=== PATIENT | female | born 1985 ===

== ENCOUNTER 2020-01-21 16:30 | Observation (INO) | payer OTHER ==
--- NOTE | 2020-01-21 18:29 | CR ---
Chest: Portable view of the chest was obtained. Comparison: No prior chest imaging is available. Heart size and mediastinum are normal. Lungs show no acute parenchymal change. Bony structures are grossly intact. Impression: 1. Nothing acute is appreciated on portable chest x-ray. Diagnostic code #1 This report was dictated in MDT
[2020-01-21] MEDS ORDERED: NIFEdipine 10 MG Cap PO ONE (18:50)
[2020-01-21] MEDS ORDERED: Albuterol/Ipratropium 3.0-0.5 MG/3 ML Neb Soln NEB ONE (18:52)
[2020-01-21] MEDS: Betamethasone Acetate/Betamethasone Sod Phosphate 30 MG/5 ML MDV IM SCH (19:48)
[2020-01-21] MEDS ORDERED: hydrALAZINE 20 MG/ML SDV IVPUSH PRN (20:29)
[2020-01-21] MEDS: Labetalol 100 MG Tab PO SCH (20:46)
--- NOTE | 2020-01-21 22:14 | PCM.PN ---
- General Info Date of Service: 01/21/20 Subjective Update: Patient has significant improvement in SOB after duoneb treatment, chest pressure also improving. Had intermittent severe range BPs, has improved since given labetalol, now 140-150s/90s. Having soreness in her hands and feet due to swelling. Denies any contractions or abdominal pain, headache, changes in vision. +FM - Review of Systems General: Reports: No Symptoms HEENT: Reports: No Symptoms Pulmonary: Reports: Shortness of Breath Cardiovascular: Reports: Dyspnea on Exertion Gastrointestinal: Reports: No Symptoms Genitourinary: Reports: No Symptoms Musculoskeletal: Reports: No Symptoms Skin: Reports: Other (swelling) Neurological: Reports: No Symptoms Psychiatric: Reports: No Symptoms - Patient Data Vitals - Most Recent: Last Vital Signs Temp Pulse 128 H 01/21/20 20:46 Resp BP 144/84 H 01/21/20 20:46 Pulse Ox Weight - Most Recent: 274 lb Med Orders - Current: Current Medications Albuterol/Ipratropium (Duoneb 3.0-0.5 Mg/3 Ml) 3 ml NEB Q4HRRT PRN PRN Reason: Shortness of Breath Betamethasone Acet/Betameth SodPhos (Celestone Soluspan 6 Mg/Ml) 12 mg IM Q24H [facility] Stop: 01/22/20 19:01 Last Admin: 01/21/20 19:48 Dose: 12 mg Documented by: Hydralazine HCl (Apresoline) 20 mg IVPUSH Q4H PRN PRN Reason: Hypertension Labetalol HCl (Normodyne) 200 mg PO BID [facility] Last Admin: 01/21/20 20:46 Dose: 200 mg Documented by: Discontinued Medications Albuterol/Ipratropium (Duoneb 3.0-0.5 Mg/3 Ml) 3 ml NEB ONETIME ONE Stop: 01/21/20 18:53 Last Admin: 01/21/20 19:08 Dose: 3 ml Documented by: Nifedipine (Procardia) 10 mg PO ONETIME ONE Stop: 01/21/20 18:51 Last Admin: 01/21/20 19:47 Dose: 10 mg Documented by: - Exam General: Alert, Oriented, Cooperative, No Acute Distress HEENT: Pupils Equal, Pupils Reactive, EOMI Neck: Supple, Trachea Midline, No JVD Lungs: Clear to Auscultation, Wheezing (mild bilaterally ), Other (slightly increased effort) Cardiovascular: Regular Rate, Regular Rhythm, No Murmurs GI/Abdominal Exam: Soft, Non-Tender Back Exam: Normal Inspection, Full Range of Motion Extremities: Normal Inspection, Normal Range of Motion, Non-Tender, Other (2+ nonpitting edema, reflex 2+ b/l LE) Skin: Warm, Dry, Intact Neurological: No New Focal Deficit Psy/Mental Status: Alert, Normal Affect, Normal Mood Sepsis Event Note - Focused Exam Vital Signs: Vital Signs Pulse BP 01/21/20 20:46 128 H 144/84 H 01/21/20 19:47 170/92 H - Problem List & Annotations (1) Asthma affecting in third trimester SNOMED Code(s): 314549827, 258267254 Code(s): O99.513 - DISEASES OF THE RESP SYS COMP , THIRD TRIMESTER; J45.909 - UNSPECIFIED ASTHMA, UNCOMPLICATED Status: Acute Current Visit: Yes (2) Chronic hypertension complicating or reason for care during SNOMED Code(s): 28007100 Code(s): O10.919 - UNSP PRE-EXISTING HTN COMP , UNSP TRIMESTER Status: Acute Current Visit: Yes - Problem List Review Problem List Initiated/Reviewed/Updated: Yes - My Orders Last 24 Hours: My Active Orders 01/21/20 18:53 RT Aerosol Therapy [RC] ASDIRECTED 01/21/20 19:00 Betamet Acet/Betamet Na Phos [Celestone Soluspan 6 MG/ML] 12 mg IM Q24H 01/21/20 21:18 RT Aerosol Therapy [RC] ASDIRECTED 01/21/20 23:00 Albuterol/Ipratropium [DuoNeb 3.0-0.5 MG/3 ML] 3 ml NEB Q4HRRT PRN 01/22/20 Dinner Regular Diet [DIET] - Assessment Assessment:: 34yo @33w2d admitted for observation due to asthma exacerbation and elevated BP with chronic HTN. - Plan Plan:: 1. Asthma exacerbation - SOB improving with duonebs q4hr - was on fluticasone/salmeterol at home, consider starting PO steroids - no signs of infection, had negative COVID19 test yesterday - neg chest xray - Cardiology consulted, cardiac echo wnl, does not have signs of cardiomyopathy. Start labetalol 200mg BID, stop metoprolol. 2. Chronic HTN with elevated BP - may be exacerbated due to asthma - preeclampsia labs wnl, prot/cr ratio of 0.2 - intermittent severe range BPs, has been 140-150s/90s with labetalol - SCDs for swelling - will monitor BP and symptoms closely, repeat labs in AM 3. status - Cat 1 tracing (140 baseline, mod anali, +accls, -decels). No ctx - will do NST q8hrs - given beta #1 @1948, 2nd dose in 24hrs Continue inpatient OBS
[2020-01-21] MEDS: Albuterol/Ipratropium 3.0-0.5 MG/3 ML Neb Soln NEB PRN (23:23)
[2020-01-22] MEDS: Albuterol/Ipratropium 3.0-0.5 MG/3 ML Neb Soln NEB PRN ×3 (03:55→15:01)
[2020-01-22 06:28] LABS: BLOOD UREA NITROGEN,BUN 5 mg/dL (7.0-18.0); CARBON DIOXIDE,CO2 23.6 mmol/L (21.0-32.0); CHLORIDE,CL 102 mmol/L (98-107); GLUCOSE RANDOM 117 mg/dL (74-106); POTASSIUM,K 3.7 mmol/L (3.5-5.1); SODIUM,NA 136 mmol/L (136-145)
[2020-01-22] MEDS: Acetaminophen 500 MG Tab PO PRN ×2 (06:34→15:40)
[2020-01-22] MEDS: Labetalol 100 MG Tab PO SCH (09:01)
--- NOTE | 2020-01-22 09:04 | PCM.PN ---
- General Info Date of Service: 01/22/20 Subjective Update: Breathing much easier this morning, was able to rest last night. Less pain in her legs with SCDs. BP stable, normal to mild range with labetalol. - Review of Systems General: Reports: No Symptoms HEENT: Reports: No Symptoms Pulmonary: Reports: No Symptoms Cardiovascular: Reports: No Symptoms Gastrointestinal: Reports: No Symptoms Genitourinary: Reports: No Symptoms Musculoskeletal: Reports: No Symptoms Skin: Reports: No Symptoms Neurological: Reports: No Symptoms Psychiatric: Reports: No Symptoms - Patient Data Vitals - Most Recent: Last Vital Signs Temp Pulse 128 H 01/21/20 20:46 Resp BP 144/84 H 01/21/20 20:46 Pulse Ox Weight - Most Recent: 274 lb Lab Results Last 24 Hours: Laboratory Results - last 24 hr 01/22/20 01/22/20 Range/Units 05:54 05:54 WBC 13.79 H (4.0-11.0) K/uL RBC 3.81 L (4.30-5.90) M/uL Hgb 9.5 L (12.0-16.0) g/dL Hct 30.5 L (36.0-46.0) % MCV 80.1 (80.0-98.0) fL MCH 24.9 L (27.0-32.0) pg MCHC 31.1 (31.0-37.0) g/dL RDW Std Deviation 42.1 (28.0-62.0) fl RDW Coeff of Chad 15 (11.0-15.0) % Plt Count 289 (150-400) K/uL MPV 9.70 (7.40-12.00) fL Neut % (Auto) 82.5 H (48.0-80.0) % Lymph % (Auto) 14.1 L (16.0-40.0) % [place] % (Auto) 3.3 (0.0-15.0) % Eos % (Auto) 0.0 (0.0-7.0) % Baso % (Auto) 0.1 (0.0-1.5) % Neut # (Auto) 11.4 H (1.4-5.7) K/uL Lymph # (Auto) 2.0 (0.6-2.4) K/uL [place] # (Auto) 0.5 (0.0-0.8) K/uL Eos # (Auto) 0.0 (0.0-0.7) K/uL Baso # (Auto) 0.0 (0.0-0.1) K/uL Sodium 136 (136-145) mmol/L Potassium 3.7 (3.5-5.1) mmol/L Chloride 102 (98-107) mmol/L Carbon Dioxide 23.6 (21.0-32.0) mmol/L BUN 5 L (7.0-18.0) mg/dL Creatinine 0.8 (0.6-1.0) mg/dL Est Cr Clr Drug Dosing 90.10 mL/min Estimated GFR (MDRD) > 60.0 ml/min Glucose 117 H (74-106) mg/dL Uric Acid 3.8 (2.6-7.2) mg/dL Calcium 8.7 (8.5-10.1) mg/dL Total Bilirubin 0.3 (0.2-1.0) mg/dL AST 16 (15-37) IU/L ALT 16 (14-63) IU/L Alkaline Phosphatase 103 (46-116) U/L Total Protein 7.1 (6.4-8.2) g/dL Albumin 2.6 L (3.4-5.0) g/dL Globulin 4.5 H (2.6-4.0) g/dL Albumin/Globulin Ratio 0.6 L (0.9-1.6) Med Orders - Current: Current Medications Acetaminophen (Tylenol Extra Strength) 1,000 mg PO Q6H PRN PRN Reason: Headache Last Admin: 01/22/20 06:34 Dose: 1,000 mg Documented by: Albuterol/Ipratropium (Duoneb 3.0-0.5 Mg/3 Ml) 3 ml NEB Q4HRRT PRN PRN Reason: Shortness of Breath Last Admin: 01/22/20 06:38 Dose: 3 ml Documented by: Betamethasone Acet/Betameth SodPhos (Celestone Soluspan 6 Mg/Ml) 12 mg IM Q24H [facility] Stop: 01/22/20 19:01 Last Admin: 01/21/20 19:48 Dose: 12 mg Documented by: Hydralazine HCl (Apresoline) 20 mg IVPUSH Q4H PRN PRN Reason: Hypertension Labetalol HCl (Normodyne) 200 mg PO BID [facility] Last Admin: 01/21/20 20:46 Dose: 200 mg Documented by: Discontinued Medications Albuterol/Ipratropium (Duoneb 3.0-0.5 Mg/3 Ml) 3 ml NEB ONETIME ONE Stop: 01/21/20 18:53 Last Admin: 01/21/20 19:08 Dose: 3 ml Documented by: Nifedipine (Procardia) 10 mg PO ONETIME ONE Stop: 01/21/20 18:51 Last Admin: 01/21/20 19:47 Dose: 10 mg Documented by: - Exam General: Alert, Oriented, Cooperative, No Acute Distress HEENT: Pupils Equal, Pupils Reactive Neck: Supple, Trachea Midline Lungs: Normal Respiratory Effort GI/Abdominal Exam: Soft, Non-Tender Back Exam: Normal Inspection, Full Range of Motion Extremities: Normal Inspection, Normal Range of Motion, Non-Tender, Pedal Edema (2+ nonpitting) Skin: Warm, Dry, Intact Neurological: No New Focal Deficit Psy/Mental Status: Alert, Normal Affect, Normal Mood Sepsis Event Note - Evaluation Sepsis Screening Result: No Definite Risk - Problem List & Annotations (1) Asthma affecting in third trimester SNOMED Code(s): 330562082, 506829694 Code(s): O99.513 - DISEASES OF THE RESP SYS COMP , THIRD TRIMESTER; J45.909 - UNSPECIFIED ASTHMA, UNCOMPLICATED Status: Acute Current Visit: Yes (2) Chronic hypertension complicating or reason for care during SNOMED Code(s): 21693530 Code(s): O10.919 - UNSP PRE-EXISTING HTN COMP , UNSP TRIMESTER Status: Acute Current Visit: Yes - Problem List Review Problem List Initiated/Reviewed/Updated: Yes - My Orders Last 24 Hours: My Active Orders 01/21/20 18:53 RT Aerosol Therapy [RC] ASDIRECTED 01/21/20 19:00 Betamet Acet/Betamet Na Phos [Celestone Soluspan 6 MG/ML] 12 mg IM Q24H 01/21/20 21:18 RT Aerosol Therapy [RC] ASDIRECTED 01/21/20 23:00 Albuterol/Ipratropium [DuoNeb 3.0-0.5 MG/3 ML] 3 ml NEB Q4HRRT PRN 01/22/20 06:22 Acetaminophen [Tylenol Extra Strength] 1,000 mg PO Q6H PRN 01/22/20 Dinner Regular Diet [DIET] - Assessment Assessment:: 34yo @33w2d admitted for observation due to asthma exacerbation and elevated BP with chronic HTN. Symptoms improving. - Plan Plan:: 1. Asthma exacerbation - SOB improving with duonebs q4hr - was on fluticasone/salmeterol at home - no signs of infection, had negative COVID19 test yesterday - neg chest xray - Cardiology consulted, cardiac echo wnl, does not have signs of cardiomyopathy. Start labetalol 200mg BID, stop metoprolol. - Reviewed patient with Dr.Van Nobles [facility], recommends increasing dose of inhaled steroid and course of steroid taper with medrol dose pack 2. Chronic HTN with elevated BP - exacerbated due to asthma, has been normal to mild range overnight with labetalol 200mg BID - preeclampsia labs wnl, prot/cr ratio of 0.2. Repeat labs this AM wnl - SCDs for swelling 3. status - Cat 1 tracing (140 baseline, mod chad, +accls, -decels). No ctx - will do NST q8hrs - given beta #1 @1948, 2nd dose today Plan for discharge home after 2nd beta. Reviewed precautions, scheduled follow up on Sunday.
[2020-01-22] MEDS: Betamethasone Acetate/Betamethasone Sod Phosphate 30 MG/5 ML MDV IM SCH (19:57)
--- NOTE | 2020-01-25 10:28 | CONS ---
DATE OF CONSULTATION: 01/21/2020 DATE OF : 1985 PRIMARY CARE PHYSICIAN: None PCP REASON FOR CONSULTATION: Shortness of breath and severe hypertension. HISTORY OF PRESENT ILLNESS: This is a 34-year-old female, G8, P 6-0-1-6, 33 weeks, history of asthma, history of chronic hypertension. She was seen in an [facility] because of shortness of breath. She was found to have the wheezing in her lungs. She was treated with DuoNeb, and she got admitted for observation. At the same time, her blood pressure was very high in the range of 180/100. She took metoprolol 100 mg for a long period of time. It has been controlling her blood pressure very good, in the range of 140-150 at home, even though it is still high. I saw her after she got treated with a nebulization, and she feels much better in terms of breathing and her lungs sound clearer and her blood pressures seem to be improving as well. PAST MEDICAL HISTORY: Including asthma. SOCIAL HISTORY: Denies smoking, drug use, alcohol consumption. FAMILY HISTORY: No family history of heart disease. REVIEW OF SYSTEMS: Except as indicated in HPI, otherwise has been negative. PHYSICAL EXAMINATION: VITAL SIGNS: Initial blood pressure is 180/100, respirations 20, O2 saturation is 95 on room air, temperature 38.0 centigrade, heart rate is 120. HEENT: Not pale. No jaundice. She is tachypneic. NECK: No JVD. HEART: Tachycardic. Normal S1 and S2. Regular rate and rhythm. No murmur. LUNGS: Minimal wheezing. Good air entry. ABDOMEN: Soft, nontender. Bowel sounds are present. No hepatosplenomegaly. EXTREMITIES: Legs edema 2+, nonpitting. INVESTIGATION: CBC showed WBC 13, hematocrit 30, platelets 289. Sodium 136, potassium 3.7, chloride 102, bicarb 23, BUN 5, creatinine 0.8, glucose 117. Uric acid 3.8. Albumin 2.6. Echocardiogram reviewed. Prelim report: Hyperdynamic LVEF, possibly more than 70%. No significant valvular disease. ASSESSMENT AND PLAN: This is a 34-year-old female with history of chronic hypertension, G8, P 6-0-1- 6, 33 weeks, who came in with acute asthmatic attack. Now, she feels much better after the nebulized treatment and blood pressures seem to be improving as well. I will change the metoprolol to labetalol 200 mg twice a day, and we will probably give her hydralazine 10 mg IV p.r.n. for the blood pressure more than 160/100 q.4-6 hours. So far, her echocardiogram is hyperdynamic, nothing acute. I will follow the blood pressure in the morning. AUSTIN / LIZETTE /[id number]
--- NOTE | 2020-01-26 15:11 | ECHO ---
EXAM DATE: 01/22/20 PATIENT'S AGE: 34 The ECHO report has been scanned into [employer] and can be seen in this patient's EMR (Electronic Medical Record) under the REPORTS section. The report has also been scanned into PACS. SHIRLEY
== END 2020-01-22 20:00 | disposition home or self-care (01) ==
LOC: MW.OB 16:30 → MW.OBCHECK 16:30 → MW.OB 01-22 09:20
PROVIDERS: ADMIT Obstetrics & Gynecology; ATTEND Obstetrics & Gynecology
DX: O99.513 Diseases of the respiratory system complicating pregnancy, third trimester (principal); J45.901 Unspecified asthma with (acute) exacerbation; O09.523 Supervision of elderly multigravida, third trimester; O10.013 Pre-existing essential hypertension complicating pregnancy, third trimester; Z3A.35 35 weeks gestation of pregnancy
CPT/HCPCS: 36415; 59025; 71045; 80053; 84550; 85025; 93306; 94640; 96372; A9270; G0378; J0702; J7620-GY

== ENCOUNTER 2020-02-09 14:42 | Inpatient (IN) | payer OTHER ==
[2020-02-09] MEDS ORDERED: Sodium Chloride 0.9% 10 ML Syringe FLUSH PRN (16:47)
[2020-02-09] MEDS ORDERED: Lidocaine 1% 50 ML MDV INJECT PRN (16:47)
[2020-02-09] MEDS ORDERED: Terbutaline 1 MG/ML SDV SUBCUT PRN (16:47)
[2020-02-09] MEDS ORDERED: Methylergonovine 0.2 MG/1 ML Amp IM PRN (16:47)
[2020-02-09] MEDS ORDERED: Water For Irrigation,Sterile 1,000 ML Container IRR PRN (16:47)
[2020-02-09] MEDS ORDERED: Sodium Chloride 0.9% 2.5 ML Syringe FLUSH PRN (16:47)
[2020-02-09] MEDS ORDERED: Carboprost Tromethamine 250 MCG/1 ML Amp IM PRN (16:47)
[2020-02-09] MEDS ORDERED: Tranexamic Acid 1,000 MG in Sodium Chloride 0.9% 100 ML IV PRN (16:47)
[2020-02-09] MEDS ORDERED: Misoprostol 200 MCG Tab PO PRN (16:47)
[2020-02-09] MEDS ORDERED: Sodium Chloride 0.9% 10 ML SDV IV PRN (16:47)
[2020-02-09] MEDS ORDERED: Butorphanol 1 MG/ML SDV IVPUSH PRN (16:47)
[2020-02-09] MEDS ORDERED: Oxytocin/0.9 % Sodium Chloride 30 UNIT/500 ML BAG IV SCH (17:00)
[2020-02-09] MEDS ORDERED: NIFEdipine 30 MG Tab.ER PO SCH (17:00)
[2020-02-09] MEDS: Albuterol/Ipratropium 3.0-0.5 MG/3 ML Neb Soln NEB SCH ×2 (17:31→21:38)
[2020-02-09] MEDS: Betamethasone Acetate/Betamethasone Sod Phosphate 30 MG/5 ML MDV IM SCH (17:37)
[2020-02-09 18:06] LABS: BLOOD UREA NITROGEN,BUN 4 mg/dL (7.0-18.0); CARBON DIOXIDE,CO2 25.1 mmol/L (21.0-32.0); CHLORIDE,CL 105 mmol/L (98-107); GLUCOSE RANDOM 84 mg/dL (74-106); POTASSIUM,K 3.7 mmol/L (3.5-5.1); SODIUM,NA 139 mmol/L (136-145)
[2020-02-09] MEDS: Lactated Ringers 1,000 ML IV SCH (18:31)
[2020-02-09] MEDS ORDERED: Labetalol 100 MG Tab PO SCH (20:22)
[2020-02-09] MEDS: Acetaminophen 500 MG Tab PO PRN (20:35)
[2020-02-10] MEDS: Albuterol/Ipratropium 3.0-0.5 MG/3 ML Neb Soln NEB SCH ×6 (02:09→21:26)
[2020-02-10] MEDS: Acetaminophen 500 MG Tab PO PRN ×2 (02:23→19:46)
[2020-02-10] MEDS ORDERED: Oxytocin/0.9 % Sodium Chloride 30 UNIT/500 ML BAG IV SCH (05:00)
[2020-02-10] MEDS: Betamethasone Acetate/Betamethasone Sod Phosphate 30 MG/5 ML MDV IM SCH (05:00)
[2020-02-10] MEDS: Lactated Ringers 1,000 ML IV SCH ×3 (08:01→14:00)
[2020-02-10] MEDS ORDERED: Bupivicaine/fentaNYL/NS 250 ML ONE (08:05)
--- NOTE | 2020-02-10 09:02 | PCM.PREANE ---
Preanesthetic Assessment - Procedure Proposed Procedure: Continuous Labor Epidural - Anesthesia/Transfusion/Family Hx Anesthesia History: Prior Anesthesia Without Reaction Transfusion History: Prior Transfusion Without Reaction - Review of Systems General: No Symptoms Pulmonary: Wheezing, Other (Patient with labored breathing. Patient states her lungs feel really good right now.) Cardiovascular: No Symptoms Gastrointestinal: No Symptoms Neurological: No Symptoms Other: Reports: None - Physical Assessment Vital Signs: Last Vital Signs Temp Pulse 131 H 02/09/20 20:37 Resp BP 189/108 H 02/09/20 20:37 Pulse Ox Height: 5 ft 5.5 in Weight: 83.733 kg ASA Class: 3 Mental Status: Alert & Oriented x3 Airway Class: Mallampati = 3 Dentition: Reports: Normal Dentition Thyro-Mental Finger Breadths: 3 Mouth Opening Finger Breadths: 3 ROM/Head Extension: Full Lungs: Decreased Breath Sounds, Wheezing, Other (Labored Audible Breathing. Patient states she actually feels better now than she has in a while.) Cardiovascular: Regular Rhythm, Tachycardia - Lab Values: Laboratory Last Values WBC 13.02 K/uL (4.0-11.0) H 02/09/20 17:24 RBC 3.89 M/uL (4.30-5.90) L 02/09/20 17:24 Hgb 9.1 g/dL (12.0-16.0) L 02/09/20 17:24 Hct 30.6 % (36.0-46.0) L 02/09/20 17:24 MCV 78.7 fL (80.0-98.0) L 02/09/20 17:24 MCH 23.4 pg (27.0-32.0) L 02/09/20 17:24 MCHC 29.7 g/dL (31.0-37.0) L 02/09/20 17:24 RDW Std Deviation 46.9 fl (28.0-62.0) 02/09/20 17:24 RDW Coeff of Chad 16 % (11.0-15.0) H 02/09/20 17:24 Plt Count 253 K/uL (150-400) 02/09/20 17:24 MPV 9.40 fL (7.40-12.00) 02/09/20 17:24 Nucleated RBC % 0.0 /100WBC 02/09/20 17:24 Nucleated RBCs # 0 K/uL 02/09/20 17:24 Sodium 139 mmol/L (136-145) 02/09/20 17:24 Potassium 3.7 mmol/L (3.5-5.1) 02/09/20 17:24 Chloride 105 mmol/L (98-107) 02/09/20 17:24 Carbon Dioxide 25.1 mmol/L (21.0-32.0) 02/09/20 17:24 BUN 4 mg/dL (7.0-18.0) L 02/09/20 17:24 Creatinine 0.8 mg/dL (0.6-1.0) 02/09/20 17:24 Est Cr Clr Drug Dosing 90.10 mL/min 02/09/20 17:24 Estimated GFR (MDRD) > 60.0 ml/min 02/09/20 17:24 Glucose 84 mg/dL (74-106) 02/09/20 17:24 Uric Acid 4.3 mg/dL (2.6-7.2) 02/09/20 17:24 Calcium 9.1 mg/dL (8.5-10.1) 02/09/20 17:24 Total Bilirubin 0.3 mg/dL (0.2-1.0) 02/09/20 17:24 AST 24 IU/L (15-37) 02/09/20 17:24 ALT 32 IU/L (14-63) 02/09/20 17:24 Alkaline Phosphatase 107 U/L (46-116) 02/09/20 17:24 Total Protein 6.7 g/dL (6.4-8.2) 02/09/20 17:24 Albumin 2.6 g/dL (3.4-5.0) L 02/09/20 17:24 Globulin 4.1 g/dL (2.6-4.0) H 02/09/20 17:24 Albumin/Globulin Ratio 0.6 (0.9-1.6) L 02/09/20 17:24 Ur Random Creatinine 100.5 mg/dL 02/09/20 18:20 U Random Total Protein 15.3 mg/dL (<11.9) H 02/09/20 18:20 Protein/Creatinin Ratio 0.2 02/09/20 18:20 Blood Type A POSITIVE 02/09/20 17:24 Antibody Screen NEGATIVE 02/09/20 17:24 - Allergies Allergies/Adverse Reactions: Allergies Allergy/AdvReac Type Severity Reaction Status Date / Time acetaminophen [From Lortab] Allergy Hallucinati Verified 01/21/20 16:45 ons hydrocodone [From Lortab] Allergy Hallucinati Verified 01/21/20 16:45 ons Influenza Virus Vaccines Allergy Hives Verified 01/21/20 16:45 - Anesthesia Plan Free Text/Narrative:: Continuous Labor Epidural - Acknowledgements Anesthesia Type Planned: Epidural Pt an Appropriate Candidate for the Planned Anesthesia: Yes Alternatives and Risks of Anesthesia Discussed w Pt/Guardian: Yes Pt/Guardian Understands and Agrees with Anesthesia Plan: Yes PreAnesthesia Questionnaire HEENT History: Reports: None Cardiovascular History: Reports: Hypertension Respiratory History: Reports: Asthma, Other (See Below) Other Respiratory History: since childhood. Uses inhalers and duonebs daily. Gastrointestinal History: Reports: None Genitourinary History: Reports: None STEWARD/STEWARDESS [employer] ROOM History: Reports: : 8 Para: 6 LMP (Approximate): Other OB/BYN History: Hx D&C for retained placenta after 07-11-2003. Leep 09/2003. D&C at 22 weeks for SAB 09/25/16 Musculoskeletal History: Reports: None Neurological History: Reports: None Psychiatric History: Reports: None Endocrine/Metabolic History: Reports: Obesity/BMI 30+ Hematologic History: Reports: None Immunologic History: Reports: None Oncologic (Cancer) History: Reports: None Dermatologic History: Reports: None - Infectious Disease History Infectious Disease History: Reports: Chicken Pox, Influenza - Past Surgical History Female Surgical History: Reports: D&C, LEEP Other Female Surgeries/Procedures: Hx D&C for retained placenta after 07-11-2003. Leep 09/2003. D&C at 22 weeks for SAB 09/25/16 - Past Imaging History Past Imaging History: Reports: None - SUBSTANCE USE Smoking Status *Q: Never Smoker Second Hand Smoke Exposure: No - HOME MEDS Home Medications: Home Meds Albuterol [Proventil HFA] 1 puff INH Q6H PRN 01/21/20 [History] Aspirin 81 mg PO DAILY 01/21/20 [History] Fluticasone/Salmeterol [Advair HFA 115-21 MCG] 2 puff INH BID 01/21/20 [History] Ondansetron [Zofran ODT] 4 mg PO BID PRN 01/21/20 [History] Pnv No.95/Ferrous Fum/Folic AC [ Tablet] 1 tab PO DAILY 01/21/20 [History] Fluticasone Propion/Salmeterol [Advair 250-50 Diskus] 1 each IH BID 30 Days #1 blst.w.dev 01/22/20 [Rx] Labetalol [Normodyne] 200 mg PO BID 02/09/20 [History] - CURRENT (IN HOUSE) MEDS Current Meds: Current Medications Acetaminophen (Tylenol Extra Strength) 1,000 mg PO Q4H PRN PRN Reason: Headache/Pain Last Admin: 02/10/20 02:23 Dose: 1,000 mg Documented by: Albuterol/Ipratropium (Duoneb 3.0-0.5 Mg/3 Ml) 3 ml NEB Q6HRRT [facility] Butorphanol Tartrate (Stadol) 1 mg IVPUSH Q1H PRN PRN Reason: Pain Carboprost Tromethamine (Hemabate Ds) 250 mcg IM ASDIRECTED PRN PRN Reason: Post Hemorrhage Oxytocin/Sodium Chloride (Oxytocin 30 Unit/500 Ml-Ns) 30 unit in 500 mls @ 2 mls/hr IV TITRATE [facility]; Protocol Last Titration: 02/10/20 08:52 Dose: 2 munits/min, 2 mls/hr Documented by: Lactated Ringer's (Ringers, Lactated) 1,000 mls @ 150 mls/hr IV ASDIRECTED [facility] Last Admin: 02/10/20 08:01 Dose: 999 mls/hr Documented by: Oxytocin/Sodium Chloride (Oxytocin 30 Unit/500 Ml-Ns) 30 unit in 500 mls @ 999 mls/hr IV TITRATE [facility] Tranexamic Acid 1,000 mg/ (Sodium Chloride) 110 mls @ 660 mls/hr IV ONETIME PRN PRN Reason: Bleeding Labetalol HCl (Normodyne) 20 mg IVPUSH Q1H PRN; Protocol PRN Reason: Hypertension Lidocaine HCl (Xylocaine 1%) 50 ml INJECT ONETIME PRN PRN Reason: Laceration repair Methylergonovine Maleate (Methergine) 0.2 mg IM ASDIRECTED PRN PRN Reason: Post Hemorrhage Misoprostol (Cytotec) 200 mcg PO ONETIME PRN PRN Reason: Post Hemorrhage Sodium Chloride (Saline Flush) 10 ml FLUSH ASDIRECTED PRN PRN Reason: Keep Vein Open Sodium Chloride (Saline Flush) 2.5 ml FLUSH ASDIRECTED PRN PRN Reason: Keep Vein Open Sodium Chloride (Normal Saline) 10 ml IV ASDIRECTED PRN PRN Reason: IV Use Sterile Water (Sterile Water For Irrigation) 1,000 ml IRR ASDIRECTED PRN PRN Reason: delivery Terbutaline Sulfate (Brethine) 0.25 mg SUBCUT ASDIRECTED PRN PRN Reason: Tacysystole Discontinued Medications Albuterol/Ipratropium (Duoneb 3.0-0.5 Mg/3 Ml) 3 ml NEB Q4HRRT [facility] Last Admin: 02/10/20 05:44 Dose: 3 ml Documented by: Betamethasone Acet/Betameth SodPhos (Celestone Soluspan 6 Mg/Ml) 12 mg IM Q12H [facility] Stop: 02/10/20 05:01 Last Admin: 02/10/20 05:00 Dose: 12 mg Documented by: Fentanyl/Bupivacaine HCl (Fentanyl/Bupivacaine/Ns 2 Mcg-0.125% 250 Ml) Confirm Administered Dose 250 mls @ as directed .ROUTE .STK-MED ONE Stop: 02/10/20 08:06 Labetalol HCl (Normodyne) 300 mg PO BID [facility] Last Admin: 02/09/20 20:37 Dose: 300 mg Documented by: Nifedipine (Procardia Xl) 60 mg PO DAILY [facility] Last Admin: 02/09/20 17:32 Dose: 60 mg Documented by:
[2020-02-10] MEDS ORDERED: Albuterol/Ipratropium 3.0-0.5 MG/3 ML Neb Soln ONE (09:47)
[2020-02-10] MEDS ORDERED: Albuterol/Ipratropium 3.0-0.5 MG/3 ML Neb Soln NEB SCH (12:00)
[2020-02-10] MEDS: Labetalol 100 MG/20 ML MDV IVPUSH PRN (13:19)
[2020-02-10] MEDS ORDERED: Bisacodyl 10 MG Supp RECTAL PRN (14:42)
[2020-02-10] MEDS ORDERED: Benzocaine/Menthol 20%-0.5% Spray 78 GM Cannister TOP PRN (14:42)
[2020-02-10] MEDS ORDERED: oxyCODONE 5 MG Tab PO PRN (14:42)
[2020-02-10] MEDS ORDERED: Lanolin 100% Cream 7 GM Tube TOP PRN (14:42)
[2020-02-10] MEDS ORDERED: Witch Hazel Medicated Pads 40/Jar TOP PRN (14:42)
[2020-02-10] MEDS ORDERED: Docusate Sodium 100 MG Cap PO PRN (14:42)
--- NOTE | 2020-02-10 14:42 | PCM.DEL ---
<JpbrandonKhushboo villagran - Last Filed: 02/10/20 14:46> L & D Note - General Info Date of Service: 02/10/20 - Delivery Note Labor: Spontaneous Cervical Ripening Method: Oxytocin. No: Prostaglandin E2 Delivery Outcome: Livebirth Delivery Method: Spontaneous Vaginal Delivery-Single Infant Delivery Mode: Spontaneous Presentation: Right Occiput Anterior (SABINE) Nuchal Cord: None Anesthesia Type: Epidural Amniotic Fluid Description: Clear Laceration: None Placenta: Intact, Spontaneous Cord: 3 Vessels Estimated Blood Loss: 200 Resuscitation Needed: No : Bulb Syringe, Stimulated, Warmed Score 1 min: 8 Score 5 min: 9 Second Stage Interventions: Reports: Pushing Effectively - Patient Data Vitals - Most Recent: Last Vital Signs Temp Pulse 131 H 02/09/20 20:37 Resp BP 189/108 H 02/09/20 20:37 Pulse Ox Weight - Most Recent: 83.733 kg I&O - Last 24 Hours: Intake & Output 02/09/20 02/10/20 02/10/20 22:59 06:59 14:59 Intake Total 900 Output Total 200 800 Balance -200 100 Lab Results Last 24 Hours: Laboratory Results - last 24 hr 02/09/20 02/09/20 02/09/20 Range/Units 17:24 17:24 17:24 WBC 13.02 H (4.0-11.0) K/uL RBC 3.89 L (4.30-5.90) M/uL Hgb 9.1 L (12.0-16.0) g/dL Hct 30.6 L (36.0-46.0) % MCV 78.7 L (80.0-98.0) fL MCH 23.4 L (27.0-32.0) pg MCHC 29.7 L (31.0-37.0) g/dL RDW Std Deviation 46.9 (28.0-62.0) fl RDW Coeff of Chad 16 H (11.0-15.0) % Plt Count 253 (150-400) K/uL MPV 9.40 (7.40-12.00) fL Nucleated RBC % 0.0 /100WBC Nucleated RBCs # 0 K/uL Sodium 139 (136-145) mmol/L Potassium 3.7 (3.5-5.1) mmol/L Chloride 105 (98-107) mmol/L Carbon Dioxide 25.1 (21.0-32.0) mmol/L BUN 4 L (7.0-18.0) mg/dL Creatinine 0.8 (0.6-1.0) mg/dL Est Cr Clr Drug Dosing 90.10 mL/min Estimated GFR (MDRD) > 60.0 ml/min Glucose 84 (74-106) mg/dL Uric Acid 4.3 (2.6-7.2) mg/dL Calcium 9.1 (8.5-10.1) mg/dL Total Bilirubin 0.3 (0.2-1.0) mg/dL AST 24 (15-37) IU/L ALT 32 (14-63) IU/L Alkaline Phosphatase 107 (46-116) U/L Total Protein 6.7 (6.4-8.2) g/dL Albumin 2.6 L (3.4-5.0) g/dL Globulin 4.1 H (2.6-4.0) g/dL Albumin/Globulin Ratio 0.6 L (0.9-1.6) Ur Random Creatinine mg/dL U Random Total Protein (<11.9) mg/dL Protein/Creatinin Ratio Blood Type A POSITIVE Antibody Screen NEGATIVE 02/09/20 Range/Units 18:20 WBC (4.0-11.0) K/uL RBC (4.30-5.90) M/uL Hgb (12.0-16.0) g/dL Hct (36.0-46.0) % MCV (80.0-98.0) fL MCH (27.0-32.0) pg MCHC (31.0-37.0) g/dL RDW Std Deviation (28.0-62.0) fl RDW Coeff of Chad (11.0-15.0) % Plt Count (150-400) K/uL MPV (7.40-12.00) fL Nucleated RBC % /100WBC Nucleated RBCs # K/uL Sodium (136-145) mmol/L Potassium (3.5-5.1) mmol/L Chloride (98-107) mmol/L Carbon Dioxide (21.0-32.0) mmol/L BUN (7.0-18.0) mg/dL Creatinine (0.6-1.0) mg/dL Est Cr Clr Drug Dosing mL/min Estimated GFR (MDRD) ml/min Glucose (74-106) mg/dL Uric Acid (2.6-7.2) mg/dL Calcium (8.5-10.1) mg/dL Total Bilirubin (0.2-1.0) mg/dL AST (15-37) IU/L ALT (14-63) IU/L Alkaline Phosphatase (46-116) U/L Total Protein (6.4-8.2) g/dL Albumin (3.4-5.0) g/dL Globulin (2.6-4.0) g/dL Albumin/Globulin Ratio (0.9-1.6) Ur Random Creatinine 100.5 mg/dL U Random Total Protein 15.3 H (<11.9) mg/dL Protein/Creatinin Ratio 0.2 Blood Type Antibody Screen Med Orders - Current: Current Medications Acetaminophen (Tylenol Extra Strength) 1,000 mg PO Q4H PRN PRN Reason: Headache/Pain Last Admin: 02/10/20 02:23 Dose: 1,000 mg Documented by: Albuterol/Ipratropium (Duoneb 3.0-0.5 Mg/3 Ml) 3 ml NEB Q4HRRT YLOIE Last Admin: 02/10/20 13:08 Dose: 3 ml Documented by: Butorphanol Tartrate (Stadol) 1 mg IVPUSH Q1H PRN PRN Reason: Pain Carboprost Tromethamine (Hemabate Ds) 250 mcg IM ASDIRECTED PRN PRN Reason: Post Hemorrhage Oxytocin/Sodium Chloride (Oxytocin 30 Unit/500 Ml-Ns) 30 unit in 500 mls @ 2 mls/hr IV TITRATE YOLIE; Protocol Last Titration: 02/10/20 13:42 Dose: 14 munits/min, 14 mls/hr Documented by: Lactated Ringer's (Ringers, Lactated) 1,000 mls @ 150 mls/hr IV ASDIRECTED YOLIE Last Admin: 02/10/20 14:00 Dose: 150 mls/hr Documented by: Oxytocin/Sodium Chloride (Oxytocin 30 Unit/500 Ml-Ns) 30 unit in 500 mls @ 999 mls/hr IV TITRATE YOLIE Tranexamic Acid 1,000 mg/ (Sodium Chloride) 110 mls @ 660 mls/hr IV ONETIME PRN PRN Reason: Bleeding Labetalol HCl (Normodyne) 20 mg IVPUSH Q1H PRN; Protocol PRN Reason: Hypertension Last Admin: 02/10/20 13:19 Dose: 20 mg Documented by: Lidocaine HCl (Xylocaine 1%) 50 ml INJECT ONETIME PRN PRN Reason: Laceration repair Methylergonovine Maleate (Methergine) 0.2 mg IM ASDIRECTED PRN PRN Reason: Post Hemorrhage Misoprostol (Cytotec) 200 mcg PO ONETIME PRN PRN Reason: Post Hemorrhage Sodium Chloride (Saline Flush) 10 ml FLUSH ASDIRECTED PRN PRN Reason: Keep Vein Open Sodium Chloride (Saline Flush) 2.5 ml FLUSH ASDIRECTED PRN PRN Reason: Keep Vein Open Sodium Chloride (Normal Saline) 10 ml IV ASDIRECTED PRN PRN Reason: IV Use Sterile Water (Sterile Water For Irrigation) 1,000 ml IRR ASDIRECTED PRN PRN Reason: delivery Terbutaline Sulfate (Brethine) 0.25 mg SUBCUT ASDIRECTED PRN PRN Reason: Tacysystole Discontinued Medications Albuterol/Ipratropium (Duoneb 3.0-0.5 Mg/3 Ml) 3 ml NEB Q4HRRT [facility] Last Admin: 02/10/20 05:44 Dose: 3 ml Documented by: Albuterol/Ipratropium (Duoneb 3.0-0.5 Mg/3 Ml) 3 ml NEB Q6HRRT YOLIE Albuterol/Ipratropium (Duoneb 3.0-0.5 Mg/3 Ml) Confirm Administered Dose 3 ml .ROUTE .STK-MED ONE Stop: 02/10/20 09:48 Last Admin: 02/10/20 13:08 Dose: Not Given Documented by: Betamethasone Acet/Betameth SodPhos (Celestone Soluspan 6 Mg/Ml) 12 mg IM Q12H [facility] Stop: 02/10/20 05:01 Last Admin: 02/10/20 05:00 Dose: 12 mg Documented by: Fentanyl/Bupivacaine HCl (Fentanyl/Bupivacaine/Ns 2 Mcg-0.125% 250 Ml) Confirm Administered Dose 250 mls @ as directed .ROUTE .STK-MED ONE Stop: 02/10/20 08:06 Labetalol HCl (Normodyne) 300 mg PO BID [facility] Last Admin: 02/09/20 20:37 Dose: 300 mg Documented by: Nifedipine (Procardia Xl) 60 mg PO DAILY [facility] Last Admin: 02/09/20 17:32 Dose: 60 mg Documented by: - Assessment Assessment:: post s/p spontaneous vaginal delivery - Plan Plan:: -routine pp care -monitor BP and antihypertensive medication as per orders -nebulizers as per orders PRN asthma <Miryea Cavanaugh - Last Filed: 02/10/20 14:48> L & D Note - General Info Mother's Due Date: 03/08/20 - Delivery Note Labor: Induced by Oxytocin Episiotomy Type: None - General Info Date of Service: 02/10/20 - Patient Data Vitals - Most Recent: Last Vital Signs Temp Pulse 131 H 02/09/20 20:37 Resp BP 189/108 H 02/09/20 20:37 Pulse Ox I&O - Last 24 Hours: Intake & Output 02/09/20 02/10/20 02/10/20 22:59 06:59 14:59 Intake Total 900 Output Total 200 800 Balance -200 100 Lab Results Last 24 Hours: Laboratory Results - last 24 hr 02/09/20 02/09/20 02/09/20 Range/Units 17:24 17:24 17:24 WBC 13.02 H (4.0-11.0) K/uL RBC 3.89 L (4.30-5.90) M/uL Hgb 9.1 L (12.0-16.0) g/dL Hct 30.6 L (36.0-46.0) % MCV 78.7 L (80.0-98.0) fL MCH 23.4 L (27.0-32.0) pg MCHC 29.7 L (31.0-37.0) g/dL RDW Std Deviation 46.9 (28.0-62.0) fl RDW Coeff of Chad 16 H (11.0-15.0) % Plt Count 253 (150-400) K/uL MPV 9.40 (7.40-12.00) fL Nucleated RBC % 0.0 /100WBC Nucleated RBCs # 0 K/uL Sodium 139 (136-145) mmol/L Potassium 3.7 (3.5-5.1) mmol/L Chloride 105 (98-107) mmol/L Carbon Dioxide 25.1 (21.0-32.0) mmol/L BUN 4 L (7.0-18.0) mg/dL Creatinine 0.8 (0.6-1.0) mg/dL Est Cr Clr Drug Dosing 90.10 mL/min Estimated GFR (MDRD) > 60.0 ml/min Glucose 84 (74-106) mg/dL Uric Acid 4.3 (2.6-7.2) mg/dL Calcium 9.1 (8.5-10.1) mg/dL Total Bilirubin 0.3 (0.2-1.0) mg/dL AST 24 (15-37) IU/L ALT 32 (14-63) IU/L Alkaline Phosphatase 107 (46-116) U/L Total Protein 6.7 (6.4-8.2) g/dL Albumin 2.6 L (3.4-5.0) g/dL Globulin 4.1 H (2.6-4.0) g/dL Albumin/Globulin Ratio 0.6 L (0.9-1.6) Ur Random Creatinine mg/dL U Random Total Protein (<11.9) mg/dL Protein/Creatinin Ratio Blood Type A POSITIVE Antibody Screen NEGATIVE 02/09/20 Range/Units 18:20 WBC (4.0-11.0) K/uL RBC (4.30-5.90) M/uL Hgb (12.0-16.0) g/dL Hct (36.0-46.0) % MCV (80.0-98.0) fL MCH (27.0-32.0) pg MCHC (31.0-37.0) g/dL RDW Std Deviation (28.0-62.0) fl RDW Coeff of Chad (11.0-15.0) % Plt Count (150-400) K/uL MPV (7.40-12.00) fL Nucleated RBC % /100WBC Nucleated RBCs # K/uL Sodium (136-145) mmol/L Potassium (3.5-5.1) mmol/L Chloride (98-107) mmol/L Carbon Dioxide (21.0-32.0) mmol/L BUN (7.0-18.0) mg/dL Creatinine (0.6-1.0) mg/dL Est Cr Clr Drug Dosing mL/min Estimated GFR (MDRD) ml/min Glucose (74-106) mg/dL Uric Acid (2.6-7.2) mg/dL Calcium (8.5-10.1) mg/dL Total Bilirubin (0.2-1.0) mg/dL AST (15-37) IU/L ALT (14-63) IU/L Alkaline Phosphatase (46-116) U/L Total Protein (6.4-8.2) g/dL Albumin (3.4-5.0) g/dL Globulin (2.6-4.0) g/dL Albumin/Globulin Ratio (0.9-1.6) Ur Random Creatinine 100.5 mg/dL U Random Total Protein 15.3 H (<11.9) mg/dL Protein/Creatinin Ratio 0.2 Blood Type Antibody Screen Med Orders - Current: Current Medications Albuterol/Ipratropium (Duoneb 3.0-0.5 Mg/3 Ml) 3 ml NEB Q4HRRT YOLIE Last Admin: 02/10/20 13:08 Dose: 3 ml Documented by: Oxytocin/Sodium Chloride (Oxytocin 30 Unit/500 Ml-Ns) 30 unit in 500 mls @ 2 mls/hr IV TITRATE YOLIE; Protocol Last Titration: 02/10/20 13:42 Dose: 14 munits/min, 14 mls/hr Documented by: Oxytocin/Sodium Chloride (Oxytocin 30 Unit/500 Ml-Ns) 30 unit in 500 mls @ 999 mls/hr IV TITRATE YOLIE Tranexamic Acid 1,000 mg/ (Sodium Chloride) 110 mls @ 660 mls/hr IV ONETIME PRN PRN Reason: Bleeding Labetalol HCl (Normodyne) 20 mg IVPUSH Q1H PRN; Protocol PRN Reason: Hypertension Last Admin: 02/10/20 13:19 Dose: 20 mg Documented by: Sodium Chloride (Saline Flush) 10 ml FLUSH ASDIRECTED PRN PRN Reason: Keep Vein Open Sodium Chloride (Saline Flush) 2.5 ml FLUSH ASDIRECTED PRN PRN Reason: Keep Vein Open Sodium Chloride (Normal Saline) 10 ml IV ASDIRECTED PRN PRN Reason: IV Use Terbutaline Sulfate (Brethine) 0.25 mg SUBCUT ASDIRECTED PRN PRN Reason: Tacysystole Discontinued Medications Acetaminophen (Tylenol Extra Strength) 1,000 mg PO Q4H PRN PRN Reason: Headache/Pain Last Admin: 02/10/20 02:23 Dose: 1,000 mg Documented by: Albuterol/Ipratropium (Duoneb 3.0-0.5 Mg/3 Ml) 3 ml NEB Q4HRRT [facility] Last Admin: 02/10/20 05:44 Dose: 3 ml Documented by: Albuterol/Ipratropium (Duoneb 3.0-0.5 Mg/3 Ml) 3 ml NEB Q6HRRT [facility] Albuterol/Ipratropium (Duoneb 3.0-0.5 Mg/3 Ml) Confirm Administered Dose 3 ml .ROUTE .STK-MED ONE Stop: 02/10/20 09:48 Last Admin: 02/10/20 13:08 Dose: Not Given Documented by: Betamethasone Acet/Betameth SodPhos (Celestone Soluspan 6 Mg/Ml) 12 mg IM Q12H [facility] Stop: 02/10/20 05:01 Last Admin: 02/10/20 05:00 Dose: 12 mg Documented by: Butorphanol Tartrate (Stadol) 1 mg IVPUSH Q1H PRN PRN Reason: Pain Carboprost Tromethamine (Hemabate Ds) 250 mcg IM ASDIRECTED PRN PRN Reason: Post Hemorrhage Lactated Ringer's (Ringers, Lactated) 1,000 mls @ 150 mls/hr IV ASDIRECTED [facility] Last Admin: 02/10/20 14:00 Dose: 150 mls/hr Documented by: Fentanyl/Bupivacaine HCl (Fentanyl/Bupivacaine/Ns 2 Mcg-0.125% 250 Ml) Confirm Administered Dose 250 mls @ as directed .ROUTE .STK-MED ONE Stop: 02/10/20 08:06 Labetalol HCl (Normodyne) 300 mg PO BID [facility] Last Admin: 02/09/20 20:37 Dose: 300 mg Documented by: Lidocaine HCl (Xylocaine 1%) 50 ml INJECT ONETIME PRN PRN Reason: Laceration repair Methylergonovine Maleate (Methergine) 0.2 mg IM ASDIRECTED PRN PRN Reason: Post Hemorrhage Misoprostol (Cytotec) 200 mcg PO ONETIME PRN PRN Reason: Post Hemorrhage Nifedipine (Procardia Xl) 60 mg PO DAILY YOLIE Last Admin: 02/09/20 17:32 Dose: 60 mg Documented by: Sterile Water (Sterile Water For Irrigation) 1,000 ml IRR ASDIRECTED PRN PRN Reason: delivery - Problem List & Annotations (1) Vaginal delivery SNOMED Code(s): 870722127 Code(s): O80 - ENCOUNTER FOR FULL-TERM UNCOMPLICATED DELIVERY Status: Acute Current Visit: Yes (2) Obesity affecting SNOMED Code(s): 068045203352, 245361442184 Code(s): O99.210 - OBESITY COMPLICATING , UNSPECIFIED TRIMESTER Status: Acute Current Visit: Yes (3) Advanced maternal age (AMA) in SNOMED Code(s): 749368607 Code(s): JTI4227 - Status: Acute Current Visit: Yes (4) Asthma affecting in third trimester SNOMED Code(s): 986153414, 593122124 Code(s): O99.513 - DISEASES OF THE RESP SYS COMP , THIRD TRIMESTER; J45.909 - UNSPECIFIED ASTHMA, UNCOMPLICATED Status: Acute Current Visit: No (5) Chronic hypertension complicating or reason for care during SNOMED Code(s): 34617135 Code(s): O10.919 - UNSP PRE-EXISTING HTN COMP , UNSP TRIMESTER Status: Acute Current Visit: No - Problem List Review Problem List Initiated/Reviewed/Updated: Yes - My Orders Last 24 Hours: My Active Orders 02/09/20 Dinner Regular Diet [DIET] 02/09/20 16:47 Sodium Chloride 0.9% [Normal Saline] 10 ml IV ASDIRECTED PRN Sodium Chloride 0.9% [Saline Flush] 10 ml FLUSH ASDIRECTED PRN Sodium Chloride 0.9% [Saline Flush] 2.5 ml FLUSH ASDIRECTED PRN Terbutaline [Brethine] 0.25 mg SUBCUT ASDIRECTED PRN Tranexamic Acid [Cyklokapron] 1,000 mg Sodium Chloride 0.9% [Normal Saline] 100 ml IV ONETIME DVT/VTE Prophylaxis Reflex [OM.PC] Routine 02/09/20 16:48 Patient Status [ADT] Routine Communication Order [RC] PRN Height and Weight [RC] DAILY Intake and Output [RC] QSHIFT Notify Provider [RC] PRN Notify Provider [RC] PRN Notify Provider [RC] STAT Oxygen Therapy [RC] PRN Vaginal Exam [RC] PRN Vital Signs [RC] PER UNIT ROUTINE Vital Signs [RC] Q4H Electronic Heart Tones Ext w TOCO [WOMSER] CONTINUOUS Peripheral IV Insertion Adult [OM.PC] Routine 02/09/20 16:49 Pulse Oximetry [RC] CONTINUOUS 02/09/20 16:50 Antiembolic Devices [RC] .Routine VTE/DVT Education [RC] PER UNIT ROUTINE 02/09/20 17:00 Oxytocin/0.9 % Sodium Chloride [Oxytocin 30 Unit/500 ML-NS] 30 unit in 500 ml IV TITRATE Medication Administration Instruction [OM.PC] Q3H 02/09/20 17:01 RT Aerosol Therapy [RC] ASDIRECTED 02/09/20 17:24 RPR (SYPHILIS SERO) W/ RFLX [REF] Routine 02/10/20 05:00 Oxytocin/0.9 % Sodium Chloride [Oxytocin 30 Unit/500 ML-NS] 30 unit in 500 ml IV TITRATE 02/10/20 Breakfast Clear Liquid Diet [DIET] 02/10/20 07:49 Labetalol [Normodyne] 20 mg IVPUSH Q1H PRN 02/10/20 10:00 Albuterol/Ipratropium [DuoNeb 3.0-0.5 MG/3 ML] 3 ml NEB Q4HRRT 02/10/20 14:42 Patient Status [ADT] Routine May Shower [RC] ASDIRECTED Notify Provider Vital Signs [RC] ASDIRECTED Oxygen Therapy [RC] ASDIRECTED Up ad Rayna [RC] ASDIRECTED Vital Signs [RC] Q4HR Benzocaine/Menthol [Dermoplast Pain Relief 20%-0.5% Nora] 78 gm TOP ASDIRECTED PRN Docusate Sodium [Colace] 100 mg PO BID PRN Ibuprofen [Motrin] 800 mg PO Q8H PRN Lanolin [Lansinoh HPA] See Dose Instructions TOP ASDIRECTED PRN bisacodyL [Dulcolax] 10 mg RECTAL ONETIME PRN oxyCODONE 5 mg PO Q2H PRN witch Cassandra [Jermaincks] 1 pad TOP ASDIRECTED PRN Assess Lochia [WOMSER] Per Unit Routine Assess Uterine Involution [WOMSER] Per Unit Routine DVT/VTE Prophylaxis Reflex [OM.PC] Routine Peripheral IV Discontinue [OM.PC] Routine Resuscitation Status Routine 02/10/20 14:43 BLOOD GAS ARTERIAL UMBILICAL [BG] Routine BLOOD GAS VENOUS UMBILICAL [BG] Routine Perineal Care [OM.PC] Per Unit Routine Sitz Bath [OM.PC] Per Unit Routine 02/10/20 14:44 Antiembolic Devices [RC] .Routine VTE/DVT Education [RC] PER UNIT ROUTINE 02/10/20 Dinner Regular Diet [DIET] 02/10/20 19:00 Chlorthalidone 12.5 mg PO DAILY 02/11/20 05:11 CBC W/O DIFF,HEMOGRAM [HEME] AM COMPREHENSIVE METABOLIC PN,CMP [CHEM] AM - Assessment Assessment:: 34yo s/p at 36w1d - Plan Plan:: Admit to unit Begin Chlorthalidone 12.5mg daily for hypertension, monitor BP closely Continue nebulizer treatments q4h until AM, then will transition back to inhaler treatments
[2020-02-10] MEDS ORDERED: Chlorthalidone 25 MG Tab PO SCH ×2 (15:30→19:00)
[2020-02-10] MEDS ORDERED: Acetaminophen 500 MG Tab PO PRN (19:20)
[2020-02-11] MEDS: Ibuprofen 800 MG Tab PO PRN ×2 (02:07→16:11)
[2020-02-11] MEDS: Albuterol/Ipratropium 3.0-0.5 MG/3 ML Neb Soln NEB SCH ×3 (02:07→14:16)
[2020-02-11 06:16] LABS: BLOOD UREA NITROGEN,BUN 7 mg/dL (7.0-18.0); CARBON DIOXIDE,CO2 21.3 mmol/L (21.0-32.0); CHLORIDE,CL 105 mmol/L (98-107); GLUCOSE RANDOM 116 mg/dL (74-106); SODIUM,NA 138 mmol/L (136-145)
--- NOTE | 2020-02-11 07:47 | PCM48HPAN ---
Post Anesthesia Note - EVALUATION WITHIN 48HRS OF ANESTHETIC Vital Signs in Normal Range: Yes Patient Participated in Evaluation: Yes Respiratory Function Stable: Yes Airway Patent: Yes Cardiovascular Function Stable: Yes Hydration Status Stable: Yes Pain Control Satisfactory: Yes Nausea and Vomiting Control Satisfactory: Yes Mental Status Recovered: Yes Vital Signs: Last Vital Signs Temp 36.5 C 02/11/20 05:20 Pulse 115 H 02/11/20 05:20 Resp 30 H 02/11/20 05:20 BP 152/99 H 02/11/20 05:20 Pulse Ox 95 02/11/20 05:20 - COMMENTS/OBSERVATIONS Free Text/Narrative:: Denies any complaints at this time
--- NOTE | 2020-02-11 08:00 | PCM.PNPP ---
<Khushboo Cha - Last Filed: 02/11/20 07:52> - General Info Date of Service: 02/11/20 Admission Dx/Problem (Free Text): spontaneous vaginal delivery Functional Status: Reports: Pain Controlled, Tolerating Diet, Ambulating, Urinating - Review of Systems General: Reports: No Symptoms HEENT: Reports: No Symptoms Pulmonary: Reports: Other (asthma - well controlled with nebulizers overnight) Gastrointestinal: Reports: No Symptoms Genitourinary: Reports: No Symptoms Musculoskeletal: Reports: Back Pain (controlled with pain medication) Skin: Reports: No Symptoms Neurological: Reports: Headache (controlled with pain medication) Psychiatric: Reports: No Symptoms - General Info Date of Service: 02/11/20 - Patient Data Vital Signs - Most Recent: Last Vital Signs Temp 97.7 F 02/11/20 05:20 Pulse 115 H 02/11/20 05:20 Resp 30 H 02/11/20 05:20 BP 152/99 H 02/11/20 05:20 Pulse Ox 95 02/11/20 05:20 Weight - Most Recent: 129.092 kg Lab Results - Last 24 Hours: Laboratory Results - last 24 hr 02/10/20 02/11/20 02/11/20 Range/Units 14:25 05:20 05:20 WBC 18.49 H (4.0-11.0) K/uL RBC 3.66 L (4.30-5.90) M/uL Hgb 8.9 L (12.0-16.0) g/dL Hct 28.8 L (36.0-46.0) % MCV 78.7 L (80.0-98.0) fL MCH 24.3 L (27.0-32.0) pg MCHC 30.9 L (31.0-37.0) g/dL RDW Std Deviation 48.1 (28.0-62.0) fl RDW Coeff of Chad 17 H (11.0-15.0) % Plt Count 308 (150-400) K/uL MPV 10.20 (7.40-12.00) fL Nucleated RBC % 0.3 /100WBC Nucleated RBCs # 0 K/uL Cord ABG pH 7.300 (7.18-7.38) Cord ABG Base Excess -5 (-10--2) Cord VBG pH 7.339 (7.25-7.45) Cord VBG Base Excess -5 (-10--2) Sodium 138 (136-145) mmol/L Potassium 4.0 (3.5-5.1) mmol/L Chloride 105 (98-107) mmol/L Carbon Dioxide 21.3 (21.0-32.0) mmol/L BUN 7 (7.0-18.0) mg/dL Creatinine 0.9 (0.6-1.0) mg/dL Est Cr Clr Drug Dosing 80.09 mL/min Estimated GFR (MDRD) > 60.0 ml/min Glucose 116 H (74-106) mg/dL Calcium 9.1 (8.5-10.1) mg/dL Total Bilirubin 0.2 (0.2-1.0) mg/dL AST 20 (15-37) IU/L ALT 29 (14-63) IU/L Alkaline Phosphatase 97 (46-116) U/L Total Protein 6.2 L (6.4-8.2) g/dL Albumin 2.5 L (3.4-5.0) g/dL Globulin 3.7 (2.6-4.0) g/dL Albumin/Globulin Ratio 0.7 L (0.9-1.6) Med Orders - Current: Current Medications Acetaminophen (Tylenol Extra Strength) 500 mg PO Q6H PRN PRN Reason: Pain Acetaminophen (Tylenol Extra Strength) 1,000 mg PO Q6H PRN PRN Reason: Pain Last Admin: 02/10/20 19:46 Dose: 1,000 mg Documented by: Albuterol/Ipratropium (Duoneb 3.0-0.5 Mg/3 Ml) 3 ml NEB Q4HRRT [facility] Last Admin: 02/11/20 06:10 Dose: 3 ml Documented by: Benzocaine/Menthol (Dermoplast Pain Relief 20%-0.5% [place]) 78 gm TOP ASDIRECTED PRN PRN Reason: Perineal Comfort Measure Bisacodyl (Dulcolax) 10 mg RECTAL ONETIME PRN PRN Reason: Constipation Chlorthalidone (Chlorthalidone) 12.5 mg PO DAILY [facility] Last Admin: 02/10/20 15:46 Dose: 12.5 mg Documented by: Docusate Sodium (Colace) 100 mg PO BID PRN PRN Reason: Constipation Emollient Ointment (Lansinoh Hpa) 0 gm TOP ASDIRECTED PRN PRN Reason: Sore Nipples Oxytocin/Sodium Chloride (Oxytocin 30 Unit/500 Ml-Ns) 30 unit in 500 mls @ 2 mls/hr IV TITRATE YOLIE; Protocol Last Titration: 02/10/20 13:42 Dose: 14 munits/min, 14 mls/hr Documented by: Oxytocin/Sodium Chloride (Oxytocin 30 Unit/500 Ml-Ns) 30 unit in 500 mls @ 999 mls/hr IV TITRATE YOLIE Tranexamic Acid 1,000 mg/ (Sodium Chloride) 110 mls @ 660 mls/hr IV ONETIME PRN PRN Reason: Bleeding Ibuprofen (Motrin) 800 mg PO Q8H PRN PRN Reason: Pain Last Admin: 02/11/20 02:07 Dose: 800 mg Documented by: Labetalol HCl (Normodyne) 20 mg IVPUSH Q1H PRN; Protocol PRN Reason: Hypertension Last Admin: 02/10/20 13:19 Dose: 20 mg Documented by: Oxycodone HCl (Oxycodone) 5 mg PO Q2H PRN PRN Reason: Pain Last Admin: 02/11/20 05:07 Dose: 5 mg Documented by: Sodium Chloride (Saline Flush) 10 ml FLUSH ASDIRECTED PRN PRN Reason: Keep Vein Open Sodium Chloride (Saline Flush) 2.5 ml FLUSH ASDIRECTED PRN PRN Reason: Keep Vein Open Sodium Chloride (Normal Saline) 10 ml IV ASDIRECTED PRN PRN Reason: IV Use Terbutaline Sulfate (Brethine) 0.25 mg SUBCUT ASDIRECTED PRN PRN Reason: Tacysystole Witch Jen (Tucks) 1 pad TOP ASDIRECTED PRN PRN Reason: comfort care Discontinued Medications Acetaminophen (Tylenol Extra Strength) 1,000 mg PO Q4H PRN PRN Reason: Headache/Pain Last Admin: 02/10/20 02:23 Dose: 1,000 mg Documented by: Albuterol/Ipratropium (Duoneb 3.0-0.5 Mg/3 Ml) 3 ml NEB Q4HRRT YOLIE Last Admin: 02/10/20 05:44 Dose: 3 ml Documented by: Albuterol/Ipratropium (Duoneb 3.0-0.5 Mg/3 Ml) 3 ml NEB Q6HRRT [facility] Albuterol/Ipratropium (Duoneb 3.0-0.5 Mg/3 Ml) Confirm Administered Dose 3 ml .ROUTE .STK-MED ONE Stop: 02/10/20 09:48 Last Admin: 02/10/20 13:08 Dose: Not Given Documented by: Betamethasone Acet/Betameth SodPhos (Celestone Soluspan 6 Mg/Ml) 12 mg IM Q12H [facility] Stop: 02/10/20 05:01 Last Admin: 02/10/20 05:00 Dose: 12 mg Documented by: Butorphanol Tartrate (Stadol) 1 mg IVPUSH Q1H PRN PRN Reason: Pain Carboprost Tromethamine (Hemabate Ds) 250 mcg IM ASDIRECTED PRN PRN Reason: Post Hemorrhage Chlorthalidone (Chlorthalidone) 12.5 mg PO DAILY [facility] Lactated Ringer's (Ringers, Lactated) 1,000 mls @ 150 mls/hr IV ASDIRECTED [facility] Last Admin: 02/10/20 14:00 Dose: 150 mls/hr Documented by: Fentanyl/Bupivacaine HCl (Fentanyl/Bupivacaine/Ns 2 Mcg-0.125% 250 Ml) Confirm Administered Dose 250 mls @ as directed .ROUTE .STK-MED ONE Stop: 02/10/20 08:06 Last Admin: 02/11/20 01:49 Dose: Not Given Documented by: Labetalol HCl (Normodyne) 300 mg PO BID [facility] Last Admin: 02/09/20 20:37 Dose: 300 mg Documented by: Lidocaine HCl (Xylocaine 1%) 50 ml INJECT ONETIME PRN PRN Reason: Laceration repair Methylergonovine Maleate (Methergine) 0.2 mg IM ASDIRECTED PRN PRN Reason: Post Hemorrhage Misoprostol (Cytotec) 200 mcg PO ONETIME PRN PRN Reason: Post Hemorrhage Nifedipine (Procardia Xl) 60 mg PO DAILY [facility] Last Admin: 02/09/20 17:32 Dose: 60 mg Documented by: Sterile Water (Sterile Water For Irrigation) 1,000 ml IRR ASDIRECTED PRN PRN Reason: delivery - Interaction Infant Disposition, : at Bedside Feeding: Bottle Fed Infant Support Person: Significant Other - Recovery Exam Fundal Tone: Firm Fundal Level: 1 Fingerbreadths Below Umbilicus Fundal Placement: Midline Lochia Amount: Scant, Small Lochia Color: Rubra/Red Bladder Status: Voiding - Exam General: Alert, Oriented, No Acute Distress HEENT: EOMI Neck: Supple Extremities: Normal Inspection Skin: Warm, Dry Neurological: Normal Speech, Normal Tone Psy/Mental Status: Alert, Normal Affect, Normal Mood - Problem List Review Problem List Initiated/Reviewed/Updated: Yes - Assessment Assessment:: 34yo PPD1 s/p at 36w1d - Plan Plan:: Admit to unit Begin Chlorthalidone 12.5mg daily for hypertension, monitor BP closely Transition to inhaler treatments today; nebulizers if needed per orders <Mireya Cavanaugh - Last Filed: 02/11/20 08:35> - General Info Subjective Update: Patient would like to space out nebulizer treatments, states throat is getting dry due to frequency. Tolerated Chlorthalidone without problems. Diuresing. - Patient Data Vital Signs - Most Recent: Last Vital Signs Temp 36.5 C 02/11/20 05:20 Pulse 115 H 02/11/20 05:20 Resp 30 H 02/11/20 05:20 BP 152/99 H 02/11/20 05:20 Pulse Ox 95 02/11/20 05:20 Lab Results - Last 24 Hours: Laboratory Results - last 24 hr 02/10/20 02/11/20 02/11/20 Range/Units 14:25 05:20 05:20 WBC 18.49 H (4.0-11.0) K/uL RBC 3.66 L (4.30-5.90) M/uL Hgb 8.9 L (12.0-16.0) g/dL Hct 28.8 L (36.0-46.0) % MCV 78.7 L (80.0-98.0) fL MCH 24.3 L (27.0-32.0) pg MCHC 30.9 L (31.0-37.0) g/dL RDW Std Deviation 48.1 (28.0-62.0) fl RDW Coeff of Chad 17 H (11.0-15.0) % Plt Count 308 (150-400) K/uL MPV 10.20 (7.40-12.00) fL Nucleated RBC % 0.3 /100WBC Nucleated RBCs # 0 K/uL Cord ABG pH 7.300 (7.18-7.38) Cord ABG Base Excess -5 (-10--2) Cord VBG pH 7.339 (7.25-7.45) Cord VBG Base Excess -5 (-10--2) Sodium 138 (136-145) mmol/L Potassium 4.0 (3.5-5.1) mmol/L Chloride 105 (98-107) mmol/L Carbon Dioxide 21.3 (21.0-32.0) mmol/L BUN 7 (7.0-18.0) mg/dL Creatinine 0.9 (0.6-1.0) mg/dL Est Cr Clr Drug Dosing 80.09 mL/min Estimated GFR (MDRD) > 60.0 ml/min Glucose 116 H (74-106) mg/dL Calcium 9.1 (8.5-10.1) mg/dL Total Bilirubin 0.2 (0.2-1.0) mg/dL AST 20 (15-37) IU/L ALT 29 (14-63) IU/L Alkaline Phosphatase 97 (46-116) U/L Total Protein 6.2 L (6.4-8.2) g/dL Albumin 2.5 L (3.4-5.0) g/dL Globulin 3.7 (2.6-4.0) g/dL Albumin/Globulin Ratio 0.7 L (0.9-1.6) Med Orders - Current: Current Medications Acetaminophen (Tylenol Extra Strength) 500 mg PO Q6H PRN PRN Reason: Pain Acetaminophen (Tylenol Extra Strength) 1,000 mg PO Q6H PRN PRN Reason: Pain Last Admin: 02/10/20 19:46 Dose: 1,000 mg Documented by: Albuterol/Ipratropium (Duoneb 3.0-0.5 Mg/3 Ml) 3 ml NEB Q4HRRT YOLIE Last Admin: 02/11/20 06:10 Dose: 3 ml Documented by: Benzocaine/Menthol (Dermoplast Pain Relief 20%-0.5% [place]) 78 gm TOP ASDIRECTED PRN PRN Reason: Perineal Comfort Measure Bisacodyl (Dulcolax) 10 mg RECTAL ONETIME PRN PRN Reason: Constipation Chlorthalidone (Chlorthalidone) 12.5 mg PO DAILY YOLIE Last Admin: 02/10/20 15:46 Dose: 12.5 mg Documented by: Docusate Sodium (Colace) 100 mg PO BID PRN PRN Reason: Constipation Emollient Ointment (Lansinoh Hpa) 0 gm TOP ASDIRECTED PRN PRN Reason: Sore Nipples Oxytocin/Sodium Chloride (Oxytocin 30 Unit/500 Ml-Ns) 30 unit in 500 mls @ 2 mls/hr IV TITRATE YOLIE; Protocol Last Titration: 02/10/20 13:42 Dose: 14 munits/min, 14 mls/hr Documented by: Oxytocin/Sodium Chloride (Oxytocin 30 Unit/500 Ml-Ns) 30 unit in 500 mls @ 999 mls/hr IV TITRATE YOLIE Tranexamic Acid 1,000 mg/ (Sodium Chloride) 110 mls @ 660 mls/hr IV ONETIME PRN PRN Reason: Bleeding Ibuprofen (Motrin) 800 mg PO Q8H PRN PRN Reason: Pain Last Admin: 02/11/20 02:07 Dose: 800 mg Documented by: Labetalol HCl (Normodyne) 20 mg IVPUSH Q1H PRN; Protocol PRN Reason: Hypertension Last Admin: 02/10/20 13:19 Dose: 20 mg Documented by: Oxycodone HCl (Oxycodone) 5 mg PO Q2H PRN PRN Reason: Pain Last Admin: 02/11/20 05:07 Dose: 5 mg Documented by: Sodium Chloride (Saline Flush) 10 ml FLUSH ASDIRECTED PRN PRN Reason: Keep Vein Open Sodium Chloride (Saline Flush) 2.5 ml FLUSH ASDIRECTED PRN PRN Reason: Keep Vein Open Sodium Chloride (Normal Saline) 10 ml IV ASDIRECTED PRN PRN Reason: IV Use Terbutaline Sulfate (Brethine) 0.25 mg SUBCUT ASDIRECTED PRN PRN Reason: Tacysystole Witch Jen (Tucks) 1 pad TOP ASDIRECTED PRN PRN Reason: comfort care Discontinued Medications Acetaminophen (Tylenol Extra Strength) 1,000 mg PO Q4H PRN PRN Reason: Headache/Pain Last Admin: 02/10/20 02:23 Dose: 1,000 mg Documented by: Albuterol/Ipratropium (Duoneb 3.0-0.5 Mg/3 Ml) 3 ml NEB Q4HRRT [facility] Last Admin: 02/10/20 05:44 Dose: 3 ml Documented by: Albuterol/Ipratropium (Duoneb 3.0-0.5 Mg/3 Ml) 3 ml NEB Q6HRRT [facility] Albuterol/Ipratropium (Duoneb 3.0-0.5 Mg/3 Ml) Confirm Administered Dose 3 ml .ROUTE .STFaceBuzz-MED ONE Stop: 02/10/20 09:48 Last Admin: 02/10/20 13:08 Dose: Not Given Documented by: Betamethasone Acet/Betameth SodPhos (Celestone Soluspan 6 Mg/Ml) 12 mg IM Q12H [facility] Stop: 02/10/20 05:01 Last Admin: 02/10/20 05:00 Dose: 12 mg Documented by: Butorphanol Tartrate (Stadol) 1 mg IVPUSH Q1H PRN PRN Reason: Pain Carboprost Tromethamine (Hemabate Ds) 250 mcg IM ASDIRECTED PRN PRN Reason: Post Hemorrhage Chlorthalidone (Chlorthalidone) 12.5 mg PO DAILY [facility] Lactated Ringer's (Ringers, Lactated) 1,000 mls @ 150 mls/hr IV ASDIRECTED [facility] Last Admin: 02/10/20 14:00 Dose: 150 mls/hr Documented by: Fentanyl/Bupivacaine HCl (Fentanyl/Bupivacaine/Ns 2 Mcg-0.125% 250 Ml) Confirm Administered Dose 250 mls @ as directed .ROUTE .STFaceBuzz-[employer] ONE Stop: 02/10/20 08:06 Last Admin: 02/11/20 01:49 Dose: Not Given Documented by: Labetalol HCl (Normodyne) 300 mg PO BID [facility] Last Admin: 02/09/20 20:37 Dose: 300 mg Documented by: Lidocaine HCl (Xylocaine 1%) 50 ml INJECT ONETIME PRN PRN Reason: Laceration repair Methylergonovine Maleate (Methergine) 0.2 mg IM ASDIRECTED PRN PRN Reason: Post Hemorrhage Misoprostol (Cytotec) 200 mcg PO ONETIME PRN PRN Reason: Post Hemorrhage Nifedipine (Procardia Xl) 60 mg PO DAILY YOLIE Last Admin: 02/09/20 17:32 Dose: 60 mg Documented by: Sterile Water (Sterile Water For Irrigation) 1,000 ml IRR ASDIRECTED PRN PRN Reason: delivery - Exam Lungs: Normal Respiratory Effort GI/Abdominal Exam: Soft, Non-Tender, No Distention - Problem List & Annotations (1) Vaginal delivery SNOMED Code(s): 547252917 Code(s): O80 - ENCOUNTER FOR FULL-TERM UNCOMPLICATED DELIVERY Status: Acute Current Visit: Yes (2) Obesity affecting SNOMED Code(s): 217983874881, 534110170021 Code(s): O99.210 - OBESITY COMPLICATING , UNSPECIFIED TRIMESTER Status: Acute Current Visit: Yes (3) Advanced maternal age (AMA) in SNOMED Code(s): 767899593 Code(s): QQU0722 - Status: Acute Current Visit: Yes (4) Asthma affecting in third trimester SNOMED Code(s): 924759980, 341178173 Code(s): O99.513 - DISEASES OF THE RESP SYS COMP , THIRD TRIMESTER; J45.909 - UNSPECIFIED ASTHMA, UNCOMPLICATED Status: Acute Current Visit: No (5) Chronic hypertension complicating or reason for care during SNOMED Code(s): 65990516 Code(s): O10.919 - UNSP PRE-EXISTING HTN COMP , UNSP TRIMESTER Status: Acute Current Visit: No - My Orders Last 24 Hours: My Active Orders 02/10/20 07:49 Labetalol [Normodyne] 20 mg IVPUSH Q1H PRN 02/10/20 10:00 Albuterol/Ipratropium [DuoNeb 3.0-0.5 MG/3 ML] 3 ml NEB Q4HRRT 02/10/20 14:42 Patient Status [ADT] Routine May Shower [RC] ASDIRECTED Notify Provider Vital Signs [RC] ASDIRECTED Oxygen Therapy [RC] ASDIRECTED Up ad Rayna [RC] ASDIRECTED Vital Signs [RC] Q4HR Benzocaine/Menthol [Dermoplast Pain Relief 20%-0.5% [place]] 78 gm TOP ASD IRECTED PRN Docusate Sodium [Colace] 100 mg PO BID PRN Ibuprofen [Motrin] 800 mg PO Q8H PRN Lanolin [Lansinoh HPA] See Dose Instructions TOP ASDIRECTED PRN bisacodyL [Dulcolax] 10 mg RECTAL ONETIME PRN oxyCODONE 5 mg PO Q2H PRN witch Jen [Tucks] 1 pad TOP ASDIRECTED PRN Assess Lochia [WOMSER] Per Unit Routine Assess Uterine Involution [WOMSER] Per Unit Routine DVT/VTE Prophylaxis Reflex [OM.PC] Routine Peripheral IV Discontinue [OM.PC] Routine Resuscitation Status Routine 02/10/20 14:43 Perineal Care [OM.PC] Per Unit Routine Sitz Bath [OM.PC] Per Unit Routine 02/10/20 14:44 VTE/DVT Education [RC] PER UNIT ROUTINE 02/10/20 15:30 Chlorthalidone 12.5 mg PO DAILY 02/10/20 Dinner Regular Diet [DIET] 02/10/20 19:20 Acetaminophen [Tylenol Extra Strength] 500 mg PO Q6H PRN 02/10/20 19:21 Acetaminophen [Tylenol Extra Strength] 1,000 mg PO Q6H PRN - Assessment Assessment:: PPD#1 - Plan Plan:: Increase Chlorthalidone to 25mg daily. Will space out nebulizer treatments to q8h, add back long-acting inhaler. Monitor today, will discharge home tomorrow.
[2020-02-11] MEDS: Fluticasone/Salmeterol 250-50 MCG Inhalation Powder 14/Diskus INH SCH ×2 (09:00→21:37)
[2020-02-11] MEDS: Chlorthalidone 25 MG Tab PO SCH (09:03)
[2020-02-11] MEDS: Labetalol 100 MG/20 ML MDV IVPUSH PRN (17:31)
[2020-02-11] MEDS ORDERED: hydrALAZINE 10 MG Tab PO PRN (19:16)
[2020-02-11] MEDS: Labetalol 100 MG Tab PO SCH (19:41)
[2020-02-11] MEDS: Acetaminophen 500 MG Tab PO PRN (23:35)
--- NOTE | 2020-02-12 07:08 | PCM.PNPP ---
<Cricket Andres - Last Filed: 02/12/20 07:03> - General Info Date of Service: 02/12/20 Admission Dx/Problem (Free Text): Functional Status: Reports: Pain Controlled, Tolerating Diet, Ambulating, Urinating - Review of Systems General: Reports: No Symptoms HEENT: Reports: No Symptoms, Headaches (Her headaches have been well controlled with tylenol) Pulmonary: Reports: Cough, Sputum, Other (Asthma not well controlled, didn't take her asthma nebulizers. States that her tonsils are large and she may have obstructive sleep apnea for which she is scheduled to see a specialist in [facility].) Cardiovascular: Reports: No Symptoms Gastrointestinal: Reports: No Symptoms Genitourinary: Reports: No Symptoms Musculoskeletal: Reports: No Symptoms, Back Pain (Rates back pain at 6/10 but states that she can tolerate it) Skin: Reports: No Symptoms Neurological: Reports: No Symptoms Psychiatric: Reports: No Symptoms - General Info Date of Service: 02/12/20 - Patient Data Vital Signs - Most Recent: Last Vital Signs Temp 36.5 C 02/12/20 04:00 Pulse 110 H 02/12/20 04:00 Resp 26 H 02/12/20 04:47 BP 137/63 02/12/20 04:00 Pulse Ox 95 02/12/20 04:47 Weight - Most Recent: 129.092 kg Lab Results - Last 24 Hours: Laboratory Results - last 24 hr 02/09/20 Range/Units 17:24 RPR Non-Reac (Non-Reac) Med Orders - Current: Current Medications Acetaminophen (Tylenol Extra Strength) 500 mg PO Q6H PRN PRN Reason: Pain Acetaminophen (Tylenol Extra Strength) 1,000 mg PO Q6H PRN PRN Reason: Pain Last Admin: 02/11/20 23:35 Dose: 1,000 mg Documented by: Albuterol/Ipratropium (Duoneb 3.0-0.5 Mg/3 Ml) 3 ml NEB Q8HRRT YOLIE Last Admin: 02/11/20 14:16 Dose: 3 ml Documented by: Benzocaine/Menthol (Dermoplast Pain Relief 20%-0.5% [place]) 78 gm TOP ASDIRECTED PRN PRN Reason: Perineal Comfort Measure Bisacodyl (Dulcolax) 10 mg RECTAL ONETIME PRN PRN Reason: Constipation Chlorthalidone (Chlorthalidone) 25 mg PO DAILY YOLIE Last Admin: 02/11/20 09:03 Dose: 25 mg Documented by: Docusate Sodium (Colace) 100 mg PO BID PRN PRN Reason: Constipation Last Admin: 02/11/20 21:37 Dose: 100 mg Documented by: Emollient Ointment (Lansinoh Hpa) 0 gm TOP ASDIRECTED PRN PRN Reason: Sore Nipples Hydralazine HCl (Apresoline) 5 mg PO Q6H PRN PRN Reason: Hypertension Oxytocin/Sodium Chloride (Oxytocin 30 Unit/500 Ml-Ns) 30 unit in 500 mls @ 2 mls/hr IV TITRATE YOLIE; Protocol Last Titration: 02/10/20 13:42 Dose: 14 munits/min, 14 mls/hr Documented by: Oxytocin/Sodium Chloride (Oxytocin 30 Unit/500 Ml-Ns) 30 unit in 500 mls @ 999 mls/hr IV TITRATE YOLIE Tranexamic Acid 1,000 mg/ (Sodium Chloride) 110 mls @ 660 mls/hr IV ONETIME PRN PRN Reason: Bleeding Ibuprofen (Motrin) 800 mg PO Q8H PRN PRN Reason: Pain Last Admin: 02/11/20 16:11 Dose: 800 mg Documented by: Labetalol HCl (Normodyne) 20 mg IVPUSH Q1H PRN; Protocol PRN Reason: Hypertension Last Admin: 02/11/20 17:31 Dose: 20 mg Documented by: Labetalol HCl (Normodyne) 300 mg PO BID [facility] Last Admin: 02/11/20 19:41 Dose: 300 mg Documented by: Oxycodone HCl (Oxycodone) 5 mg PO Q2H PRN PRN Reason: Pain Last Admin: 02/11/20 05:07 Dose: 5 mg Documented by: Fluticasone/Salmeterol 250-50 Mcg Inhalation Powder 14/Diskus 1 each INH BID [facility] Last Admin: 02/11/20 21:37 Dose: 1 each Documented by: Sodium Chloride (Saline Flush) 10 ml FLUSH ASDIRECTED PRN PRN Reason: Keep Vein Open Sodium Chloride (Saline Flush) 2.5 ml FLUSH ASDIRECTED PRN PRN Reason: Keep Vein Open Sodium Chloride (Normal Saline) 10 ml IV ASDIRECTED PRN PRN Reason: IV Use Terbutaline Sulfate (Brethine) 0.25 mg SUBCUT ASDIRECTED PRN PRN Reason: Tacysystole Witnilsa Jen (Tucks) 1 pad TOP ASDIRECTED PRN PRN Reason: comfort care Discontinued Medications Acetaminophen (Tylenol Extra Strength) 1,000 mg PO Q4H PRN PRN Reason: Headache/Pain Last Admin: 02/10/20 02:23 Dose: 1,000 mg Documented by: Albuterol/Ipratropium (Duoneb 3.0-0.5 Mg/3 Ml) 3 ml NEB Q4HRRT [facility] Last Admin: 02/10/20 05:44 Dose: 3 ml Documented by: Albuterol/Ipratropium (Duoneb 3.0-0.5 Mg/3 Ml) 3 ml NEB Q6HRRT YOLIE Albuterol/Ipratropium (Duoneb 3.0-0.5 Mg/3 Ml) 3 ml NEB Q4HRRT [facility] Last Admin: 02/11/20 06:10 Dose: 3 ml Documented by: Albuterol/Ipratropium (Duoneb 3.0-0.5 Mg/3 Ml) Confirm Administered Dose 3 ml .ROUTE .STK-MED ONE Stop: 02/10/20 09:48 Last Admin: 02/10/20 13:08 Dose: Not Given Documented by: Betamethasone Acet/Betameth SodPhos (Celestone Soluspan 6 Mg/Ml) 12 mg IM Q12H [facility] Stop: 02/10/20 05:01 Last Admin: 02/10/20 05:00 Dose: 12 mg Documented by: Butorphanol Tartrate (Stadol) 1 mg IVPUSH Q1H PRN PRN Reason: Pain Carboprost Tromethamine (Hemabate Ds) 250 mcg IM ASDIRECTED PRN PRN Reason: Post Hemorrhage Chlorthalidone (Chlorthalidone) 12.5 mg PO DAILY [facility] Chlorthalidone (Chlorthalidone) 12.5 mg PO DAILY [facility] Last Admin: 02/10/20 15:46 Dose: 12.5 mg Documented by: Lactated Ringer's (Ringers, Lactated) 1,000 mls @ 150 mls/hr IV ASDIRECTED [facility] Last Admin: 02/10/20 14:00 Dose: 150 mls/hr Documented by: Fentanyl/Bupivacaine HCl (Fentanyl/Bupivacaine/Ns 2 Mcg-0.125% 250 Ml) Confirm Administered Dose 250 mls @ as directed .ROUTE .STK-MED ONE Stop: 02/10/20 08:06 Last Admin: 02/11/20 01:49 Dose: Not Given Documented by: Labetalol HCl (Normodyne) 300 mg PO BID [facility] Last Admin: 02/09/20 20:37 Dose: 300 mg Documented by: Lidocaine HCl (Xylocaine 1%) 50 ml INJECT ONETIME PRN PRN Reason: Laceration repair Methylergonovine Maleate (Methergine) 0.2 mg IM ASDIRECTED PRN PRN Reason: Post Hemorrhage Misoprostol (Cytotec) 200 mcg PO ONETIME PRN PRN Reason: Post Hemorrhage Nifedipine (Procardia Xl) 60 mg PO DAILY [facility] Last Admin: 02/09/20 17:32 Dose: 60 mg Documented by: Sterile Water (Sterile Water For Irrigation) 1,000 ml IRR ASDIRECTED PRN PRN Reason: delivery - Interaction Infant Disposition, : to Nursery Feeding: Bottle Fed Support Person: , Significant Other - Recovery Exam Fundal Tone: Firm Fundal Level: 1 Fingerbreadths Below Umbilicus Fundal Placement: Midline Lochia Amount: Scant Lochia Color: Rubra/Red Perineum Description: Intact, Minimal Bruising/Swelling Episiotomy/Laceration: None Bladder Status: Voiding - Exam General: Alert, Oriented, Cooperative, Other (Appears to have mild difficulty with breathing, no use of accessory muscles noted) HEENT: Pupils Equal Neck: Supple, Trachea Midline, No JVD Lungs: Wheezing (Very mild B/L wheezing noted on auscultation. No crackles, rales or rhonchi ) Cardiovascular: Regular Rate, Regular Rhythm, No Murmurs GI/Abdominal Exam: Normal Bowel Sounds, Soft, Non-Tender, No Organomegaly, Other (Has had a couple of bowel movements and flatus) Extremities: Normal Capillary Refill, Pedal Edema (She still has puffy feet (at least, a 1+ edema)) Skin: Warm, Intact, Moist Neurological: No New Focal Deficit (Has been ambulating) Psy/Mental Status: Alert, Normal Affect, Normal Mood - Problem List Review Problem List Initiated/Reviewed/Updated: Yes - Assessment Assessment:: PPD#2 - Plan Plan:: Did receive 300 mg Labetalol. Continue nebulizer treatments at q8h, add back long-acting inhaler (patient did refuse asthma treatment last night). Monitor and prepare for discharge to home. Patient was seen and evaluated by medical student (CRICKET ANDRES). I appreciate the opportunity to be involved in the care of this patient. <Mireya Cavanaugh - Last Filed: 02/12/20 08:36> - General Info Subjective Update: Patient doing well this morning. Breathing overall improved, with intermittent worsening. Denies preeclampsia symptoms. - Patient Data Vital Signs - Most Recent: Last Vital Signs Temp 36.5 C 02/12/20 04:00 Pulse 110 H 02/12/20 04:00 Resp 26 H 02/12/20 04:47 BP 137/63 02/12/20 04:00 Pulse Ox 95 02/12/20 04:47 Lab Results - Last 24 Hours: Laboratory Results - last 24 hr 02/09/20 Range/Units 17:24 RPR Non-Reac (Non-Reac) Med Orders - Current: Current Medications Acetaminophen (Tylenol Extra Strength) 500 mg PO Q6H PRN PRN Reason: Pain Acetaminophen (Tylenol Extra Strength) 1,000 mg PO Q6H PRN PRN Reason: Pain Last Admin: 02/11/20 23:35 Dose: 1,000 mg Documented by: Albuterol/Ipratropium (Duoneb 3.0-0.5 Mg/3 Ml) 3 ml NEB Q8HRRT [facility] Last Admin: 02/12/20 07:57 Dose: 3 ml Documented by: Benzocaine/Menthol (Dermoplast Pain Relief 20%-0.5% Lanexa) 78 gm TOP ASDIRECTED PRN PRN Reason: Perineal Comfort Measure Bisacodyl (Dulcolax) 10 mg RECTAL ONETIME PRN PRN Reason: Constipation Chlorthalidone (Chlorthalidone) 25 mg PO DAILY [facility] Last Admin: 02/11/20 09:03 Dose: 25 mg Documented by: Docusate Sodium (Colace) 100 mg PO BID PRN PRN Reason: Constipation Last Admin: 02/11/20 21:37 Dose: 100 mg Documented by: Emollient Ointment (Lansinoh Hpa) 0 gm TOP ASDIRECTED PRN PRN Reason: Sore Nipples Hydralazine HCl (Apresoline) 5 mg PO Q6H PRN PRN Reason: Hypertension Oxytocin/Sodium Chloride (Oxytocin 30 Unit/500 Ml-Ns) 30 unit in 500 mls @ 2 mls/hr IV TITRATE YOLIE; Protocol Last Titration: 02/10/20 13:42 Dose: 14 munits/min, 14 mls/hr Documented by: Oxytocin/Sodium Chloride (Oxytocin 30 Unit/500 Ml-Ns) 30 unit in 500 mls @ 999 mls/hr IV TITRATE YOLIE Tranexamic Acid 1,000 mg/ (Sodium Chloride) 110 mls @ 660 mls/hr IV ONETIME PRN PRN Reason: Bleeding Ibuprofen (Motrin) 800 mg PO Q8H PRN PRN Reason: Pain Last Admin: 02/11/20 16:11 Dose: 800 mg Documented by: Labetalol HCl (Normodyne) 20 mg IVPUSH Q1H PRN; Protocol PRN Reason: Hypertension Last Admin: 02/11/20 17:31 Dose: 20 mg Documented by: Labetalol HCl (Normodyne) 300 mg PO BID YOLIE Last Admin: 02/11/20 19:41 Dose: 300 mg Documented by: Oxycodone HCl (Oxycodone) 5 mg PO Q2H PRN PRN Reason: Pain Last Admin: 02/11/20 05:07 Dose: 5 mg Documented by: Fluticasone/Salmeterol 250-50 Mcg Inhalation Powder 14/Diskus 1 each INH BID [facility] Last Admin: 02/11/20 21:37 Dose: 1 each Documented by: Sodium Chloride (Saline Flush) 10 ml FLUSH ASDIRECTED PRN PRN Reason: Keep Vein Open Sodium Chloride (Saline Flush) 2.5 ml FLUSH ASDIRECTED PRN PRN Reason: Keep Vein Open Sodium Chloride (Normal Saline) 10 ml IV ASDIRECTED PRN PRN Reason: IV Use Terbutaline Sulfate (Brethine) 0.25 mg SUBCUT ASDIRECTED PRN PRN Reason: Tacysystole Witch Jen (Tucks) 1 pad TOP ASDIRECTED PRN PRN Reason: comfort care Discontinued Medications Acetaminophen (Tylenol Extra Strength) 1,000 mg PO Q4H PRN PRN Reason: Headache/Pain Last Admin: 02/10/20 02:23 Dose: 1,000 mg Documented by: Albuterol/Ipratropium (Duoneb 3.0-0.5 Mg/3 Ml) 3 ml NEB Q4HRRT [facility] Last Admin: 02/10/20 05:44 Dose: 3 ml Documented by: Albuterol/Ipratropium (Duoneb 3.0-0.5 Mg/3 Ml) 3 ml NEB Q6HRRT [facility] Albuterol/Ipratropium (Duoneb 3.0-0.5 Mg/3 Ml) 3 ml NEB Q4HRRT [facility] Last Admin: 02/11/20 06:10 Dose: 3 ml Documented by: Albuterol/Ipratropium (Duoneb 3.0-0.5 Mg/3 Ml) Confirm Administered Dose 3 ml .ROUTE .[employer] ONE Stop: 02/10/20 09:48 Last Admin: 02/10/20 13:08 Dose: Not Given Documented by: Betamethasone Acet/Betameth SodPhos (Celestone Soluspan 6 Mg/Ml) 12 mg IM Q12H [facility] Stop: 02/10/20 05:01 Last Admin: 02/10/20 05:00 Dose: 12 mg Documented by: Butorphanol Tartrate (Stadol) 1 mg IVPUSH Q1H PRN PRN Reason: Pain Carboprost Tromethamine (Hemabate Ds) 250 mcg IM ASDIRECTED PRN PRN Reason: Post Hemorrhage Chlorthalidone (Chlorthalidone) 12.5 mg PO DAILY [facility] Chlorthalidone (Chlorthalidone) 12.5 mg PO DAILY [facility] Last Admin: 02/10/20 15:46 Dose: 12.5 mg Documented by: Lactated Ringer's (Ringers, Lactated) 1,000 mls @ 150 mls/hr IV ASDIRECTED [facility] Last Admin: 02/10/20 14:00 Dose: 150 mls/hr Documented by: Fentanyl/Bupivacaine HCl (Fentanyl/Bupivacaine/Ns 2 Mcg-0.125% 250 Ml) Confirm Administered Dose 250 mls @ as directed .ROUTE .[employer]-MED ONE Stop: 02/10/20 08:06 Last Admin: 02/11/20 01:49 Dose: Not Given Documented by: Labetalol HCl (Normodyne) 300 mg PO BID [facility] Last Admin: 02/09/20 20:37 Dose: 300 mg Documented by: Lidocaine HCl (Xylocaine 1%) 50 ml INJECT ONETIME PRN PRN Reason: Laceration repair Methylergonovine Maleate (Methergine) 0.2 mg IM ASDIRECTED PRN PRN Reason: Post Hemorrhage Misoprostol (Cytotec) 200 mcg PO ONETIME PRN PRN Reason: Post Hemorrhage Nifedipine (Procardia Xl) 60 mg PO DAILY [facility] Last Admin: 02/09/20 17:32 Dose: 60 mg Documented by: Sterile Water (Sterile Water For Irrigation) 1,000 ml IRR ASDIRECTED PRN PRN Reason: delivery - Problem List & Annotations (1) Vaginal delivery SNOMED Code(s): 573956956 Code(s): O80 - ENCOUNTER FOR FULL-TERM UNCOMPLICATED DELIVERY Status: Acute Current Visit: Yes (2) Obesity affecting SNOMED Code(s): 415641142191, 446605071907 Code(s): O99.210 - OBESITY COMPLICATING , UNSPECIFIED TRIMESTER Status: Acute Current Visit: Yes (3) Advanced maternal age (AMA) in SNOMED Code(s): 571456434 Code(s): CFZ0102 - Status: Acute Current Visit: Yes (4) Asthma affecting in third trimester SNOMED Code(s): 071236073, 940547048 Code(s): O99.513 - DISEASES OF THE RESP SYS COMP , THIRD TRIMESTER; J45.909 - UNSPECIFIED ASTHMA, UNCOMPLICATED Status: Acute Current Visit: No (5) Chronic hypertension complicating or reason for care during SNOMED Code(s): 10317692 Code(s): O10.919 - UNSP PRE-EXISTING HTN COMP , UNSP TRIMESTER Status: Acute Current Visit: No - My Orders Last 24 Hours: My Active Orders 02/11/20 09:00 Chlorthalidone 25 mg PO DAILY Patient's Own Medication [Ptom] 1 each INH BID 02/11/20 14:00 Albuterol/Ipratropium [DuoNeb 3.0-0.5 MG/3 ML] 3 ml NEB Q8HRRT 02/11/20 19:00 Labetalol [Normodyne] 300 mg PO BID 02/12/20 08:26 Ready for Discharge [RC] PER UNIT ROUTINE - Plan Plan:: Continue Chlorthalidone 25mg daily and Labetalol 300mg BID. Discussed patient making PCP appointment within the next week for long-term BP management. Keep Pulmonology appointment on 02/18. Patient to call clinic with BPs, especially if sustained >160/110. All questions answered, discharge home today.
[2020-02-12] MEDS: Albuterol/Ipratropium 3.0-0.5 MG/3 ML Neb Soln NEB SCH (07:57)
[2020-02-12] MEDS: Acetaminophen 500 MG Tab PO PRN (09:20)
[2020-02-12] MEDS: Labetalol 100 MG Tab PO SCH (09:20)
[2020-02-12] MEDS: Chlorthalidone 25 MG Tab PO SCH (10:15)
[2020-02-12] MEDS: Fluticasone/Salmeterol 250-50 MCG Inhalation Powder 14/Diskus INH SCH (10:15)
== END 2020-02-12 11:30 | disposition home or self-care (01) | DRG 805 ==
LOC: MW.OB 14:42 → OBSVTOIN 02-10 14:42 → MW.OB 02-10 23:47
PROVIDERS: ADMIT Obstetrics & Gynecology; ATTEND Obstetrics & Gynecology
PROC: 10E0XZZ Delivery of Products of Conception, External Approach (ICD-10-PCS; principal; 2020-02-10)
PROC: 10907ZC Drainage of Amniotic Fluid, Therapeutic from Products of Conception, Via Natural or Artificial Opening (ICD-10-PCS; 2020-02-10)
PROC: 3E033VJ Introduction of Other Hormone into Peripheral Vein, Percutaneous Approach (ICD-10-PCS; 2020-02-10)
PROC: 3E0R3BZ Introduction of Anesthetic Agent into Spinal Canal, Percutaneous Approach (ICD-10-PCS; 2020-02-10)
PROC: 00HU33Z Insertion of Infusion Device into Spinal Canal, Percutaneous Approach (ICD-10-PCS; 2020-02-10)
PROC: 10H07YZ Insertion of Other Device into Products of Conception, Via Natural or Artificial Opening (ICD-10-PCS; 2020-02-10)
DX: O10.92 Unspecified pre-existing hypertension complicating childbirth (principal); O60.14X0 Preterm labor third trimester with preterm delivery third trimester, not applicable or unspecified; Z37.0 Single live birth; O99.214 Obesity complicating childbirth; E66.9 Obesity, unspecified; O99.52 Diseases of the respiratory system complicating childbirth; J45.909 Unspecified asthma, uncomplicated; Z3A.36 36 weeks gestation of pregnancy
CPT/HCPCS: 01967; 36415; 51702; 59025; 59409; 80053; 82570; 82803; 84156; 84550; 85027; 86592; 86850; 86900; 86901; 94640; A9270-GY; J0702; J2590; J3490; J7120; J7620-GY